=== PATIENT | female | born 1965 | race American Indian/Alaskan Native ===

== ENCOUNTER 2016-11-06 10:39 | Emergency (ER) | payer SELFPAY ==
--- NOTE | 2016-11-06 11:51 | Emergency Department Report ---
Chief Complaint: Abdominal Pain Stated Complaint: CONSTIPATED/LEFT FLANK PAIN Time Seen by Provider: 11/06/16 11:49 - HPI History of Present Illness: PT c/o L flank pain "for a while" PT states the pain has been worse for a week + constipation - ROS Review of Systems: + vomiting + passing gas - Exam Vital Signs: Vital Signs 11/06/16 11:43 Temperature 98.5 F Pulse Rate 66 Respiratory 18 Rate Blood Pressure 121/91 O2 Sat by Pulse 100 Oximetry Physical Exam: no cva tenderness abd not ttp scar to midline line upper abd MSE screening note: Focused history and physical exam performed. Due to findings the following was ordered: labs ED Disposition for MSE Condition: Stable Instructions: Abdominal Pain (ED)
[2016-11-06 12:16] LABS: Hematocrit 42.4 % (30.3-42.9); Hemoglobin 13.5 gm/dl (10.1-14.3); Mean Corpuscular HGB Conc 32 % (30-34); Mean Corpuscular Hemoglobin 28 pg (28-32); Mean Corpuscular Volume 87 fl (79-97); Platelet Count 186 K/mm3 (140-440); Red Blood Count 4.89 M/mm3 (3.65-5.03); White Blood Count 4.2 K/mm3 (4.5-11.0)
[2016-11-06 12:45] LABS: Alanine Aminotransferase 8 units/L (7-56); Albumin 4.2 g/dL (3.9-5); Albumin/Globulin Ratio 1.2 %; Alkaline Phosphatase 77 units/L (35-129); Anion Gap 19 mmol/L; BUN/Creatinine Ratio 11.42; Blood Urea Nitrogen 8 mg/dL (7-17); Calcium 9.2 mg/dL (8.4-10.2); Carbon Dioxide 26 mmol/L (22-30); Glucose 89 mg/dL (65-100); Lipase 25 units/L (13-60); Potassium 3.6 mmol/L (3.6-5.0); Sodium 141 mmol/L (137-145); Total Protein 7.7 g/dL (6.3-8.2)
[2016-11-06 13:22] LABS: Basophils % (Manual) 0 % (0.0-1.8); Blastocytes % (Manual) 0 %; Diff Status Complete; RBC Morphology Normal
[2016-11-06 13:25] LABS: Bilirubin,Urine NEG (Negative); Blood,Urine NEG (Negative); Ketones,Urine TR mg/dL (Negative); Leukocyte Esterase,Urine NEG (Negative); Mucus,Urine 1+ /HPF; Nitrite,Urine NEG (Negative); Protein,Urine <15 mg/dL mg/dL (Negative); Urobilinogen,Urine < 2.0 mg/dL (<2.0)
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
[2016-11-06 19:51] VITALS: BP 152/92
[2016-11-06] MEDS ORDERED: MORPHINE IV ONE (19:55)
[2016-11-06] MEDS ORDERED: NACL ONE (20:07)
--- NOTE | 2016-11-06 21:08 | Cat Scan Report ---
FINAL REPORT PROCEDURE: CT ABDOMEN PELVIS W CON TECHNIQUE: Computerized axial tomography of the abdomen and pelvis was performed after the IV injection of iodinated nonionic contrast. HISTORY: Flank pain COMPARISON: No prior studies are available for comparison. FINDINGS: Liver, spleen, and adrenal glands are within normal limits. There is uniform enhancement of the right kidney without hydronephrosis. Left kidney demonstrates a well-defined fat containing inhomogeneous lesion measuring 1.2 centimeters in the midpole. A small cyst measuring about 4 millimeters is noted in the midpole left kidney. There is no hydronephrosis the left kidney. Urinary bladder is well distended with normal outlines. Aorta is of normal caliber. There is no free fluid or free air. Gallbladder is unremarkable. Small bowel loops are within normal limits. Appendix is normal. Uterus is retroverted. Mild degree degenerative changes are noted involving the lumbar spine... IMPRESSION: No acute intra-abdominal or pelvic pathology. 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 A smaller cystic lesion measuring 4 millimeters is consistent with a simple cyst. No obstructive uropathy Retroverted uterus
--- NOTE | 2016-11-07 07:26 | XRay Report ---
ABDOMEN, 2 views: History: Abdominal pain. There is no evidence of free air beneath the diaphragms. The gas pattern within the abdomen is unremarkable. There is no evidence of bowel dilatation, significant air-fluid levels, or pathologic calcifications. Organ shadows are unremarkable. IMPRESSION: Unremarkable abdomen.
== END 2016-11-06 21:59 | disposition home or self-care (01) ==
LOC: ED 10:39
DX: R10.30 Lower abdominal pain, unspecified (principal); R19.5 Other fecal abnormalities; I10 Essential (primary) hypertension; F17.200 Nicotine dependence, unspecified, uncomplicated; F12.10 Cannabis abuse, uncomplicated; Z88.6 Allergy status to analgesic agent; Z88.2 Allergy status to sulfonamides
CPT/HCPCS: 36415; 74020; 74177; 80053; 81001; 83690; 85007; 85025; 96374; 99284; J2270; Q9967

== ENCOUNTER 2019-01-26 12:21 | Emergency (ER) | payer SELFPAY ==
[2019-01-26 13:35] VITALS: BP 132/83
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
== END 2019-01-26 14:01 | disposition home or self-care (01) ==
LOC: ED 12:21
DX: H00.012 Hordeolum externum right lower eyelid (principal)
CPT/HCPCS: 99282

== ENCOUNTER 2020-01-21 18:27 | Emergency (ER) | payer OTHER ==
[2020-01-21 19:44] VITALS: BP 158/94
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
--- NOTE | 2020-01-21 20:11 | XRay Report ---
LEFT KNEE 3 VIEW(S) INDICATION / CLINICAL INFORMATION: Left knee pain after a fall COMPARISON: None available. FINDINGS: BONES / JOINT(S): No acute fracture or subluxation. No significant arthritis. SOFT TISSUES: No significant abnormality. ADDITIONAL FINDINGS: None. Signer Name: Jef Villagomez MD Signed: 01/21/2020 8:06 PM Workstation Name: [id number]
--- NOTE | 2020-01-21 20:26 | XRay Report ---
LEFT ELBOW 4 VIEW(S) INDICATION / CLINICAL INFORMATION: Left elbow pain after a fall COMPARISON: None available. FINDINGS: BONES / JOINT(S): No acute fracture or subluxation. No significant arthritis. No joint effusion. SOFT TISSUES: Mild soft tissue swelling over the medial elbow. ADDITIONAL FINDINGS: None. Signer Name: Jef Villagomez MD Signed: 01/21/2020 8:22 PM Workstation Name: [id number]
--- NOTE | 2020-01-21 20:26 | XRay Report ---
LEFT HIP 2 VIEW(S) INDICATION / CLINICAL INFORMATION: Left hip pain after a fall COMPARISON: None available. FINDINGS: BONES / JOINT(S): No acute fracture or subluxation. Mild left hip degenerative arthrosis. SOFT TISSUES: No significant abnormality. ADDITIONAL FINDINGS: None. Signer Name: Jef Villagomez MD Signed: 01/21/2020 8:22 PM Workstation Name: [id number]
[2020-01-21] MEDS ORDERED: DIPHtheria,PERTUSSIS(ACELL),TETANUS VACCINE/PF 0.5 ML VIAL IM ONE (20:37)
== END 2020-01-21 20:50 | disposition home or self-care (01) ==
LOC: ED 18:27
DX: S50.312A Abrasion of left elbow, initial encounter (principal); S50.02XA Contusion of left elbow, initial encounter; M25.562 Pain in left knee; F17.200 Nicotine dependence, unspecified, uncomplicated; Z79.899 Other long term (current) drug therapy; Z88.2 Allergy status to sulfonamides; Z88.6 Allergy status to analgesic agent; W01.0XXA Fall on same level from slipping, tripping and stumbling without subsequent striking against object, initial encounter; Y93.89 Activity, other specified; Y92.89 Other specified places as the place of occurrence of the external cause; Y99.8 Other external cause status
CPT/HCPCS: 90471; 90715; 99283

== ENCOUNTER 2020-10-25 18:08 | Emergency (ER) | payer SELFPAY ==
[2020-10-25] MEDS ORDERED: ASPIRIN 325 MG TAB PO ONE (18:18)
[2020-10-25 18:45] LABS: Basophils # (Auto) 0.1 K/mm3 (0.0-0.1); Eosinophils # (Auto) 0.1 K/mm3 (0.0-0.4); Eosinophils % (Auto) 2.7 % (0.0-4.3); Hematocrit 40.3 % (30.3-42.9); Hemoglobin 13.2 gm/dl (10.1-14.3); Lymphocytes # (Auto) 2.6 K/mm3 (1.2-5.4); Lymphocytes % (Auto) 51.6 % (13.4-35.0); Mean Corpuscular HGB Conc 33 % (30-34); Mean Corpuscular Volume 87 fl (79-97); Monocytes # (Auto) 0.4 K/mm3 (0.0-0.8); Monocytes % (Auto) 7.9 % (0.0-7.3); Platelet Count 194 K/mm3 (140-440); Red Blood Count 4.62 M/mm3 (3.65-5.03); Red Cell Distribution Width 13.5 % (13.2-15.2)
--- NOTE | 2020-10-25 18:54 | XRay Report ---
CHEST 2 VIEWS INDICATION: cp...c/o intermittent CP x 1 week . COMPARISON: None. FINDINGS: Support devices: None. Heart: Within normal limits. Lungs/Pleura: No acute air space or interstitial disease. No significant pleural effusion. IMPRESSION: No acute findings. Signer Name: Ford Jimenez MD Signed: 10/25/2020 6:50 PM Workstation Name: [id number]
[2020-10-25 19:07] LABS: Alanine Aminotransferase 11 units/L (7-56); Albumin 4.4 g/dL (3.9-5); Blood Urea Nitrogen 5 mg/dL (7-17); Calcium 9.9 mg/dL (8.4-10.2); Hemolysis Index 9
[2020-10-25 19:22] LABS: BUN/Creatinine Ratio 8
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
[2020-10-26 05:47] VITALS: BP 148/79
--- NOTE | 2020-10-27 10:54 | Electrocardiograph Report ---
[facility] Test Date: 2020-10-25 Test Time: 18:24:13 Pat Name: JOAQUIN LORA Department: Room: Gender: F Tool Maker Bench: GAIL : 1965 Requested By: TONY DENG Order Number: [id number] Reading MD: Nina Osullivan Measurements Intervals [place] Rate: 88 P: -31 IA: 130 QRS: -3 QRSD: 99 T: 40 QT: 391 QTc: 474 Interpretive Statements Sinus rhythm No previous ECG available for comparison Electronically Signed On 10-27-2020 10:54:22 EDT by Nina Osullivan
== END 2020-10-25 21:00 | disposition home or self-care (01) ==
LOC: ED 18:08
DX: R07.9 Chest pain, unspecified (principal); R03.0 Elevated blood-pressure reading, without diagnosis of hypertension; M79.602 Pain in left arm; F17.200 Nicotine dependence, unspecified, uncomplicated
CPT/HCPCS: 36415; 71046; 80053; 84484; 85025; 93005; 99283